=== PATIENT | male | born 1990 | race Caucasian/White ===

== ENCOUNTER 2018-11-29 20:49 | Emergency (ER) | payer OTHER ==
[~2018-11-29] VITALS: Ht 167.6 cm; Wt 64.1 kg
--- NOTE | 2018-11-29 21:48 | NUR ---
FIRST CONTACT WITH PT. PT HERE STATING THAT HE CAN NOT STOP DOING METH AND THAT WE HAVE A DETOX HERE TO HELP HIM WITH THAT. PT STATES THAT HE WENT TO [facility] AND THEN A CUSTODIAL, WAS TOLD [facility] CAN'T HELP HIM BECAUSE HE IS NOT SUICIDAL, DENIES SI/HI HERE CURRENTLY. SOMEONE TOLD HIM THAT THERE IS AN IN PT DETOX [facility] HERE, PT AWARE THAT THIS IS NOT THE CASE. PT'S AOX4. RESPS EVEN AND UNLABORED. BP/SPO2 MONITORS IN PLACE. CALL LIGHT WITHIN REACH. PA AT BEDSIDE TO EVALUATE AT THIS TIME.
[2018-11-29 21:52] VITALS: BP 115/72
--- NOTE | 2018-11-29 21:53 | NUR ---
pt medicated per emar. pt tolerated well.
--- NOTE | 2018-11-29 22:20 | NUR ---
PT GIVEN DC INSTRUCTIONS. PT'S AOX4. RESPS EVEN AND UNLABORED. NO ACUTE DISTRESS AT DC. PT AMB TO DC WITH STEADY GAIT.
== END 2018-11-29 22:21 | disposition home or self-care (01) ==
LOC: ED 22:15
DX: F15.10 Other stimulant abuse, uncomplicated (principal); F17.200 Nicotine dependence, unspecified, uncomplicated
CPT/HCPCS: 99282; Q0177

== ENCOUNTER 2018-12-18 10:54 | Emergency (ER) | payer BC, OTHER ==
[~2018-12-18] VITALS: Ht 177.8 cm; Wt 62.3 kg
[2018-12-18 10:59] VITALS: BP 119/70
== END 2018-12-18 18:10 | disposition other institution (70) ==
LOC: ED 11:24
DX: F15.950 Other stimulant use, unspecified with stimulant-induced psychotic disorder with delusions (principal); F32.9 Major depressive disorder, single episode, unspecified; R45.851 Suicidal ideations; F17.200 Nicotine dependence, unspecified, uncomplicated
CPT/HCPCS: 36415; 80053; 80307; 85025; 99284

== ENCOUNTER 2018-12-18 16:29 | Inpatient (IN) | payer BC ==
[~2018-12-18] VITALS: Ht 167.6 cm; Wt 67.8 kg
[2018-12-22 07:26] VITALS: BP 102/65
== END 2018-12-22 09:51 | disposition home or self-care (01) | DRG 885 ==
LOC: 3E 18:14
PROVIDERS: ADMIT Psychiatry & Neurology Psychosomatic Medicine; ATTEND Psychiatry & Neurology Psychosomatic Medicine
DX: F32.3 Major depressive disorder, single episode, severe with psychotic features (principal); R45.851 Suicidal ideations; F12.90 Cannabis use, unspecified, uncomplicated; F15.90 Other stimulant use, unspecified, uncomplicated; F17.210 Nicotine dependence, cigarettes, uncomplicated; Z59.0 Homelessness
CPT/HCPCS: 36415; 80048; 80053; 80061; 80307; 81003; 82140; 82607; 84439; 84443; 85025; 86592; 99284

== ENCOUNTER 2018-12-24 01:25 | Emergency (ER) | payer BC ==
[~2018-12-24] VITALS: Ht 165.1 cm; Wt 61.6 kg
[2018-12-24 02:39] VITALS: BP 118/78
== END 2018-12-24 02:41 | disposition home or self-care (01) ==
LOC: ED 02:23
DX: F22 Delusional disorders (principal); F32.9 Major depressive disorder, single episode, unspecified; F15.129 Other stimulant abuse with intoxication, unspecified; Z72.9 Problem related to lifestyle, unspecified
CPT/HCPCS: 99284